=== PATIENT | male | born 1975 | race Caucasian/White ===

== ENCOUNTER → 2019-06-24 | Outpatient (CLI) | payer OTHER ==
--- NOTE | 2019-06-24 17:22 | CONS ---
CONSULTATION DATE OF SERVICE: 06/24/2019 This patient is a 44-year-old gentleman who has been evaluated in the sleep center for difficulties initiating sleep and multiple awakenings from sleep with snoring and gasping for air. HISTORY OF PRESENT ILLNESS/SLEEP-WAKE EVALUATION: Patient's sleep schedule on weekdays is from 11 p.m. until 5 a.m. and he gets out of bed around 8 a.m. On weekends he sleeps from 1 a.m. until 6 a.m. and he gets out of bed around 11 a.m. He does have a problem with falling asleep. He has a TV set in the bedroom. He wakes up from sleep multiple times; he has counted more than 30, with up to 2 episodes of nocturia at night. The patient starts to see dreams as he is falling asleep, possibly hypnagogical hallucinations. No history of sleep paralysis or cataplexy. The patient feels significantly sleepy and tired during the day. If he is falling asleep during the day, he may see vivid dreams. [place] Sleepiness Scale is in a very high range at 15. PAST MEDICAL HISTORY: Practically negative. PAST SURGICAL HISTORY: Right hand surgery. MEDICATIONS: None. SOCIAL HISTORY: Positive for smoking for 20 pack/years. Patient continues to smoke. Alcohol consumption up to 2 whiskeys every night because the patient believes that it may help him to sleep better. REVIEW OF SYSTEMS: Difficulties initiating sleep. Multiple awakenings from sleep. Sleepiness during the day. PHYSICAL EXAMINATION: GENERAL: A pleasant gentleman without distress. VITAL SIGNS: BP 119/78, HR 100, RR 16. Height inches, weight 183.8 pounds. Body mass index 24.8. Temperature 98.1. Oxygen saturation at room air 97%. HEENT: PERRLA, EOMI. Evaluation of oropharynx showed tongue protrudes midline. Moderately low position of soft palate. Mallampati II to III. Short distance between soft palate and posterior pharyngeal wall. Significant restriction of nasal breathing. NECK: Supple. No JVD. Thyroid is not palpable. LUNGS: Clear to percussion and to auscultation. Good air exchange. No wheezing or rhonchi. HEART: S1, S2 regular. No murmurs, gallops or rubs. ABDOMEN: Soft and nontender. Bowel sounds are present. No organomegaly. EXTREMITIES: No clubbing or cyanosis. GARBAGE TRUCK DISPATCHER: Awake, alert, and oriented X3. Cranial nerves 2 to 7 intact. There is no fasciculation or atrophy. noted. No focal deficits observed. IMPRESSION: 1. Snoring, witnessed episodes of stopped breathing during sleep, multiple awakenings from sleep, significant excessive daytime sleepiness; obstructive sleep apnea. 2. Significant excessive daytime sleepiness, [place] Sleepiness Scale is 15, hypnagogical hallucinations, difficulties sleeping during the night, possibly seeing vivid dreams if he is falling asleep during the day; differential diagnosis should include narcolepsy without cataplexy. 3. Insomnia could be secondary to narcolepsy or psychophysiological. 4. Restriction of nasal breathing; possible nasal septum deviation. 5. Status post right hand surgery. 6. Twenty pack/year smoker. 7. Alcohol consumption every night. The patient believes alcohol helps him sleep better. PLAN: 1. Polysomnography for evaluation of patient's breathing during sleep. 2. CPAP/BiPAP titration if sleep study confirms obstructive sleep apnea-hypopnea syndrome. 3. Preferable position during sleep on the side. 4. No driving if patient feels any sleepiness. 5. I will see patient for follow up visit to explain results of testing and following plan. 6. Multiple sleep latency test if the sleep study is negative for obstructive sleep apnea-hypopnea syndrome. 7. Patient should try to decrease the amount of alcohol at night because multiple research studies showed that alcohol may help some patients to fall asleep, but in the second part of the night alcohol usually makes sleep worse. 8. Psychological techniques for treatment of insomnia should include stimulus control, paradoxical intention, worry time, no watching the clock. Thank you very much for referring this patient for consultation. Sincerely, Davonte Aquino MD, PhD, FAASM Diplomat of [employer] Body Trimmer Upholsterer [facility] [place] MMODL / IJN: [id number] /
== END ==
LOC: SLEEP 09:56
PROVIDERS: ATTEND Internal Medicine
DX: G47.33 Obstructive sleep apnea (adult) (pediatric) (principal); J98.8 Other specified respiratory disorders; F17.210 Nicotine dependence, cigarettes, uncomplicated; F10.20 Alcohol dependence, uncomplicated; Z98.890 Other specified postprocedural states
CPT/HCPCS: 99211

== ENCOUNTER → 2020-01-19 | Outpatient (CLI) | payer OTHER ==
--- NOTE | 2020-01-19 22:31 | SFUN ---
SLEEP CENTER FOLLOW UP NOTE DATE OF SERVICE: 01/19/2020 This patient is a 44-year-old gentleman who has been followed in Sleep Center for treatment of obstructive sleep apnea-hypopnea syndrome. Recently the patient had a polysomnogram which showed severe sleep apnea with apnea-hypopnea index 69. Then the patient had CPAP titration, and during titration his respiration normalized. Subsequently he was ordered to get CPAP equipment, and today is his first visit after he started to use CPAP equipment. Unfortunately the patient has difficulties with CPAP, feels the pressure is too high, and he was not able to use the machine -- also because he has some difficulties breathing through his nose. Dorris Sleepiness Scale today is increased to 14. I checked his CPAP unit. Pressure is 8 cm of water. For about 4 months the has used it only for 7 nights. When he did use it, apnea-hypopnea index was in normal range at 2.8. MEDICATIONS: None. PHYSICAL EXAMINATION: GENERAL: A pleasant patient in no distress. VITAL SIGNS: BP 123/85, HR 80, RR 16, weight 183, temperature 98.1, oxygen saturation at room air 99%. HEENT: PERRLA, EOMI. Evaluation of oropharynx showed tongue protrudes midline. Low position of soft palate. NECK: Supple. No JVD. Thyroid is not palpable. LUNGS: Clear to percussion and to auscultation. Good air exchange. No wheezing or rhonchi. HEART: S1, S2 regular. No murmurs, gallops or rubs. ABDOMEN: Soft and nontender. Bowel sounds are present. No organomegaly. EXTREMITIES: No clubbing or cyanosis. MANAGER RESEARCH AND DEVELOPMENT: Awake, alert, and oriented X3. Cranial nerves 2 to 7 intact. There is no fasciculation or atrophy. noted. No focal deficits observed. IMPRESSION: 1. Severe obstructive sleep apnea-hypopnea syndrome. The patient has difficulties with the usage of CPAP. 2. Some restriction of nasal breathing; possibly nasal septum deviation. 3. Status post right hand surgery. 4. Patient is a cigarette smoker. PLAN: 1. Patient should continue to use CPAP equipment every night for the whole night. I discussed with him risks or complications of not treating obstructive sleep apnea- hypopnea syndrome, especially when it is in severe range. 2. I decreased the pressure in his CPAP unit to 5 cm of water. 3. The patient will continue use nasal pillow mask with nasal strips. 4. Watching weight. 5. No driving if feeling sleepiness. 6. Follow-up visit in 1 to 2 months. Thank you very much for allowing me to participate in the management of your patient. Sincerely, Davonte Aquino MD, PhD, FAASM Diplomat of [place] [employer] [place] Rubber Compounder Mixer of [facility] [place] MMODL / KARONN: [id number] /
== END | disposition home or self-care (01) ==
LOC: SLEEP 14:35
PROVIDERS: ATTEND Internal Medicine
DX: G47.33 Obstructive sleep apnea (adult) (pediatric) (principal); F17.210 Nicotine dependence, cigarettes, uncomplicated; R09.81 Nasal congestion; Z98.890 Other specified postprocedural states

== ENCOUNTER → 2020-03-10 | Outpatient (CLI) | payer OTHER ==
--- NOTE | 2020-03-10 10:28 | CT ---
EXAMINATION TYPE: CT brain wo/w con DATE OF EXAM: 03/10/2020 COMPARISON: None HISTORY: new onset migraines and hair loss CT DLP: 2247mGycm CONTRAST: CT scan of the head is performed without and with IV Contrast, patient injected with 100 mL of Isovue 300. Unenhanced followed by contrast enhanced CT of the brain is submitted for evaluation. The ventricles are midline. There is no evidence for intracranial hemorrhage or extra-axial collection. No mass e ffects are identified. Visualized bony calvarium is intact. Contrast is administered and no enhanci ng lesions are detected. No pathologic enhancement is identified. If symptoms persist consider MRI. IMPRESSION: Normal CT brain.
== END | disposition home or self-care (01) ==
LOC: RADCTMAIN 09:49
PROVIDERS: ATTEND Nurse Practitioner Family
DX: G43.809 Other migraine, not intractable, without status migrainosus (principal)
CPT/HCPCS: 70470; Q9967

== ENCOUNTER → 2020-05-17 | Outpatient (CLI) | payer OTHER ==
--- NOTE | 2020-05-17 17:23 | SFUN ---
SLEEP CENTER FOLLOW UP NOTE DATE OF SERVICE: 05/17/2020 A 44-year-old gentleman who has been followed in the Sleep Center for treatment of obstructive sleep apnea-hypopnea syndrome. During previous visit about 3 months ago, the patient was not able to use CPAP equipment at all. During that visit, I decreased the pressure in CPAP unit down. Presently, patient come back for followup visit. He is able to use his CPAP equipment practically every night. Sleeps better with that. Feels better during the day. I checked his CPAP unit. CPAP pressure is 6.6. Usage is 30/30 nights for more than 4 hours. Average is 7.2 hours per night. Leak is 6 L/minute which is normal. Apnea- hypopnea index in the range between 7 and 8 and depending what time it was checked for. MEDICATIONS: None. PHYSICAL EXAM: Patient in no distress, BP 125/84, HR 80, RR 16, height 6, 1/4 inch, weight 189.8, temp is 98.2 oxygen saturation at room air 96%. BMI 25.4. OROPHARYNX: Low position of soft palate. NECK: Supple, no JVD. Thyroid is not palpable. LUNGS: Clear to percussion and to auscultation. Good air exchange. No wheezing or rhonchi. HEART: S1, S2 regular. No murmurs, gallops, or rubs. ABDOMEN: Soft and nontender. Bowel sounds are present. No organomegaly appreciated. EXTREMITIES: No clubbing or cyanosis. BLOCKMASON: Awake, alert, and oriented X3. Cranial nerves 2 to 7 intact. There is no fasciculation or atrophy. noted. No focal deficits observed. IMPRESSION: 1. Severe obstructive sleep apnea-hypopnea syndrome. Apnea-hypopnea index 69.3. After decreasing pressure, patient is able to use equipment 100% of the time, benefitting from treatment. 2. Some restriction of nasal breathing, possible nasal septum deviation. 3. Status post right hand surgery. 4. Cigarette smoker. 5. History of migraines. PLAN: 1. Patient will continue to use PAP equipment every night for the whole night. 2. Sleep hygiene with regular time in bed for at least 7-1/2 to 8 hours. 3. Precautions related to driving. No driving if feeling sleepiness. 4. I will maintain all necessary prescription for PAP supplies including mask, tube, filters. 5. Watching weight. 6. No driving if feeling sleepiness. 7. Followup visit in 6 months or earlier if patient has any problems. Thank you very much for allowing me to participate in the management of your patient. Sincerely, Davonte Aquino MD, PhD, FAASM Diplomat of [employer] [employer] [employer] Manager [facility] [place] MMODL / JELENA: [id number] /
== END | disposition home or self-care (01) ==
LOC: SLEEP 13:18
PROVIDERS: ATTEND Internal Medicine
DX: G47.33 Obstructive sleep apnea (adult) (pediatric) (principal); F17.210 Nicotine dependence, cigarettes, uncomplicated; Z98.890 Other specified postprocedural states; Z86.69 Personal history of other diseases of the nervous system and sense organs; Z99.89 Dependence on other enabling machines and devices

== ENCOUNTER 2021-03-09 13:39 | Emergency (ER) | payer OTHER ==
[2021-03-09] MEDS ORDERED: HYDROmorphone 1 MG/ML 1 ML SYRINGE IM STA (15:11)
[2021-03-09] MEDS ORDERED: KETOROLAC 15 MG/ML 1 ML VIAL IM STA (15:11)
[2021-03-09] MEDS ORDERED: LIDOCAINE 5% PATCH TOPICAL STA (15:11)
--- NOTE | 2021-03-09 15:34 | ED ---
Fall HPI - General Chief Complaint: Fall Stated Complaint: fall, rib & back pain Time Seen by Provider: 03/09/21 15:02 Source: patient Mode of arrival: ambulatory - History of Present Illness Initial Comments: 45 year-old male patient presents to the emergency department for right sided back pain. States this morning around 7am he fell down two stairs after missing a step. States he fell backwards and struck his back on the steps. He is reporting right upper back pain over the ribs. States he can feel a clicking/popping sensation with movement. Pain worsens with movement and breathing. He denies any cough or hemoptysis. Denies any chest pain. Denies hitting his head or lose consciousness with the fall. Denies any neck pain. He is reporting some tingling sensation to the right arm. Has not taken anything for pain. Patient denies any headache, shortness of breath, dizziness, weakness, abdominal pain, nausea, vomiting, or difficulties with bowel movements or urination. - Related Data Home Medications Medication Instructions Recorded Confirmed Fremanezumab-Vfrm [Ajovy Syringe] 225 mg INJ Q28D 03/09/21 03/09/21 Rimegepant Sulfate [Nurtec Odt] 75 mg PO DAILY PRN 03/09/21 03/09/21 Previous Rx's Medication Instructions Recorded HYDROcodone/APAP 5-325MG [Edson 5] 1 each PO Q6HR PRN #12 tab 03/09/21 Ibuprofen [Motrin] 600 mg PO Q8HR PRN #30 tab 03/09/21 Lidocaine 5% Patch [Lidoderm] 1 patch TOPICAL DAILY #30 patch 03/09/21 Allergies Allergy/AdvReac Type Severity Reaction Status Date / Time No Known Allergies Allergy Verified 03/09/21 16:21 Review of Systems ROS Statement: Those systems with pertinent positive or pertinent negative responses have been documented in the HPI. ROS Other: All systems not noted in ROS Statement are negative. Past Medical History Past Medical History: No Reported History History of Any Multi-Drug Resistant Organisms: None Reported Past Surgical History: Orthopedic Surgery Additional Past Surgical History / Comment(s): rt hand Past Psychological History: No Psychological Hx Reported Smoking Status: Current every day smoker Past Alcohol Use History: Occasional Past Drug Use History: None Reported General Exam Limitations: no limitations General appearance: alert, in no apparent distress, other (Physical well- developed, well-nourished adult male patient in mild distress related to pain. Vital signs upon presentation are temperature 98.7F, pulse 104, respirations 20, blood pressure 129/88, pulse ox 96% on room air.) ENT exam: Present: normal exam, normal oropharynx, mucous membranes moist Respiratory exam: Present: normal lung sounds bilaterally. Absent: respiratory distress, wheezes, rales, rhonchi, stridor Cardiovascular Exam: Present: normal rhythm, tachycardia, normal heart sounds. Absent: systolic murmur, diastolic murmur, rubs, gallop, clicks GI/Abdominal exam: Present: soft, normal bowel sounds. Absent: distended, tenderness, guarding, rebound, rigid Extremities exam: Present: normal inspection, full ROM, normal capillary refill, other (Radial pulses 2+). Absent: tenderness, pedal edema, joint swelling, calf tenderness Back exam: Present: tenderness (Right posterior ribs), other (abrasion noted over the right posterior ribs). Absent: vertebral tenderness Neurological exam: Present: alert, oriented X3, CN II-XII intact Psychiatric exam: Present: normal affect, normal mood Skin exam: Present: warm, dry, intact, normal color. Absent: rash Course Vital Signs 03/09/21 03/09/21 14:37 17:05 Temperature 98.7 F 97.8 F Pulse Rate 104 H 90 Respiratory 20 18 Rate Blood Pressure 129/88 110/68 O2 Sat by Pulse 96 97 Oximetry Medical Decision Making - Medical Decision Making 45-year-old male patient presents to the emergency department today for evaluation of right sided back pain. Physical examination did reveal tenderness and abrasion over the right posterior ribs. No spinal tenderness. No flank tenderness. X-ray was obtained of the chest and the right ribs and showed evide nce for displaced right seventh and eighth rib fractures. I did discuss findings and results with him. He'll be treated with pain medication, Lidoderm patch, and given incentive spirometer for prevention of pneumonia. He is instructed to follow-up the primary care physician for recheck in 1-2 days. Return parameters were discussed in detail. He verbalizes understanding and agrees with this plan. Case discussed with my attending Dr. Reveles. - Radiology Data Radiology results: report reviewed, image reviewed X-ray of the right ribs with chest is obtained. Report was reviewed in its entirety. Impression by Dr. escobedo shows displaced fractures involving the posterior margin of the left seventh and eighth ribs. Disposition Clinical Impression: Fracture of rib of right side Disposition: HOME SELF-CARE Condition: Good Instructions (If sedation given, give patient instructions): How to Use an Incentive Spirometer (ED), Rib Fracture (ED) Additional Instructions: Take medications as directed. Splint when coughing or sneezing. Rest. Follow- up with the primary care physician for recheck in 1-2 days. Return for any new, worsening, or concerning symptoms. Prescriptions: Lidocaine 5% Patch [Lidoderm] 1 patch TOPICAL DAILY #30 patch Ibuprofen [Motrin] 600 mg PO Q8HR PRN #30 tab PRN Reason: Pain HYDROcodone/APAP 5-325MG [Edson 5] 1 each PO Q6HR PRN #12 tab PRN Reason: Pain Is patient prescribed a controlled substance at d/c from ED?: No Referrals: Cory Gray MD [Primary Care Provider] - 1-2 days Time of Disposition: 16:47
--- NOTE | 2021-03-09 16:19 | XR ---
EXAMINATION TYPE: XR ribs RT w pa chest xray DATE OF EXAM: 03/09/2021 COMPARISON: NONE TECHNIQUE: Frontal view of the chest and 4 views of the right ribs are submitted submitted. HISTORY: Right posterior rib pain FINDINGS: The lungs are clear and there is no pneumothorax, pleural effusion, or focal pneumonia. Arthropathy of the shoulders. There is a displaced fracture involving the posterior margin of the right seventh and eighth rib IMPRESSION: 1. Displaced fractures involving the posterior margin of the left seventh and eighth ribs.
[2021-03-09 17:07] VITALS: BP 110/68; PULSE 90; RESP 18; TEMP 97.8
[2021-03-09 23:53] LABS: Appearance,Urine Clear (Clear); Bilirubin,Urine Negative (Negative); Blood,Urine Negative (Negative); Color,Urine Yellow; Glucose,Urine (UA) Negative (Negative); Ketones,Urine Negative (Negative); Leukocyte Esterase,Urine Negative (Negative); Nitrite,Urine Negative (Negative); PH, Urine 6.5 (5.0-8.0); Protein,Urine Trace (Negative); Specific Gravity,Urine 1.022 (1.001-1.035); Urobilinogen,Urine <2.0 mg/dL (<2.0)
== END 2021-03-09 17:07 | disposition home or self-care (01) ==
LOC: EC 13:39
DX: S22.41XA Multiple fractures of ribs, right side, initial encounter for closed fracture (principal); F17.200 Nicotine dependence, unspecified, uncomplicated; W10.8XXA Fall (on) (from) other stairs and steps, initial encounter; Y92.009 Unspecified place in unspecified non-institutional (private) residence as the place of occurrence of the external cause
CPT/HCPCS: 81003; 71101; 99284; 96372 ×2; J1170; J1885